=== PATIENT | male | born 1950 | race Caucasian/White ===

== ENCOUNTER → 2017-07-02 | Outpatient (CLI) | payer OTHER ==
[~2017-07-02] MED LIST: ASCRIPTIN325 MG PO; CLOPIDOGREL75 M2 PO; KOMBIGLYZE XR 11 TE1 PO; LISINOPRIL10 MG PO; METFORMIN HYD1000 MG PO; PLAVIX75 MG PO; PROTEGRA ANTIOX1 SGL PO; SIMVASTATIN40 MG PO; [UNRECOGNIZED DRUG - OTHER] PO
[2017-07-02 12:35] LABS: BUN 20 mg/dL (7-18)
[2017-07-02 12:38] LABS: GFR (ESTIMATED) 97 ML/MIN (>60)
== END ==
LOC: LAB 08:32
PROVIDERS: Internal Medicine Adolescent Medicine
DX: E11.9 Type 2 diabetes mellitus without complications (principal)